=== PATIENT | female | born 1995 | race American Indian/Alaskan Native ===

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

== ENCOUNTER 2021-06-06 14:25 | Emergency (ER) | payer MEDICAID, OTHER ==
[2021-06-06 14:40] VITALS: BP 114/69
[2021-06-06] MEDS ORDERED: SODIUM CHLORIDE 0.9% 1000 ML 1,000 ML IV ONE (15:03)
[2021-06-06] MEDS ORDERED: ONDANSETRON 4 MG/2 ML INJ IV ONE (15:04)
--- NOTE | 2021-06-06 15:11 | Emergency Department Report ---
- General Chief Complaint: Upper Respiratory Infection Stated Complaint: FLU SYM/COUGH/SOB Source: patient Mode of arrival: Ambulatory Limitations: No Limitations - History of Present Illness Initial Comments: 26-year-old female presents to the ED with complaint of body ache, fever ,cough and vomiting x1. patient states that she is 24 weeks and feels weak. 1 par 0 A 1. Patient states that her and her boyfriend went to another hospital and was exposed to the flu. States that she her boyfriend is positive for the flu . Patient states that she has vomited x1 today. She do have Duragesic and Zofran at home. States she is able to tolerate food but feels weak. Patient states that this is day 3 of having influenza for her but she is concerned because her boyfriend is getting better and she is not. Patient denies abdominal pain, vaginal bleeding or chest pain at present. MD Complaint: cough Context: sick contacts Associated Symptoms: vomiting - Related Data Allergies Allergy/AdvReac Type Severity Reaction Status Date / Time No Known Allergies Allergy Unverified 09/28/16 10:02 ED Review of Systems ROS: Stated complaint: FLU SYM/COUGH/SOB Other details as noted in HPI Constitutional: denies: chills, fever Eyes: denies: eye pain, eye discharge, vision change ENT: denies: ear pain, throat pain Respiratory: cough. denies: shortness of breath, wheezing Cardiovascular: denies: chest pain, palpitations Endocrine: no symptoms reported Gastrointestinal: denies: abdominal pain, nausea, diarrhea Genitourinary: denies: urgency, dysuria, discharge Musculoskeletal: denies: back pain, joint swelling, arthralgia Skin: denies: rash, lesions Neurological: denies: headache, weakness, paresthesias Psychiatric: denies: anxiety, depression Hematological/Lymphatic: denies: easy bleeding, easy bruising ED Physical Exam - General Limitations: No Limitations General appearance: alert, in no apparent distress - Head Head exam: Present: atraumatic, normocephalic - Eye Eye exam: Present: normal appearance - ENT ENT exam: Present: mucous membranes moist - Neck Neck exam: Present: normal inspection - Respiratory Respiratory exam: Present: normal lung sounds bilaterally. Absent: respiratory distress - Cardiovascular Cardiovascular Exam: Present: regular rate, normal rhythm. Absent: systolic murmur, diastolic murmur, rubs, gallop - GI/Abdominal GI/Abdominal exam: Present: soft, normal bowel sounds - Extremities Exam Extremities exam: Present: normal inspection - Back Exam Back exam: Present: normal inspection - Neurological Exam Neurological exam: Present: alert, oriented X3 - Psychiatric Psychiatric exam: Present: normal affect, normal mood - Skin Skin exam: Present: warm, dry, intact, normal color. Absent: rash ED Course Vital Signs 06/06/21 14:39 Temperature 98.3 F Pulse Rate 107 H Respiratory 18 Rate Blood Pressure 114/69 O2 Sat by Pulse 97 Oximetry ED Medical Decision Making - Medical Decision Making 26-year-old female presents to the ED with complaint of body ache, fever ,cough and vomiting x1. patient states that she is 24 weeks and feels weak. 1 par 0 A 1. Patient states that her and her boyfriend went to another hospital and was exposed to the flu. States that she her boyfriend is positive for the flu . Patient states that she has vomited x1 today. She do have Duragesic and Zofran at home. States she is able to tolerate food but feels weak. Patient states that this is day 3 of having influenza for her but she is concerned because her boyfriend is getting better and she is not. Patient denies abdominal pain, vaginal bleeding or chest pain at present. Patient given 1 L of normal saline and Zofran. States she feels better after fluids and medication. Patient to follow-up with [facility]. Rechecked the patient is resting quietly quietly and comfortable and feeling b angie. I discussed the results of diagnostic study, my clinical impression and the plan for further treatment with the patient. Patient agrees with plan and discharge at this present time. All question addressed. I have given the patient instruction regarding a diagnosis ,expectation ,follow- up and return precaution. I explained to the patient that emergent condition may arise and to return to the ED for new worsen and any new persisting condition. I have explained the importance of following up with the primary care physician or referral physician listed below has instructed. The patient verbalized understanding of discharge instruction. Critical care attestation.: If time is entered above; I have spent that time in minutes in the direct care of this critically ill patient, excluding procedure time. ED Disposition Clinical Impression: Influenza Disposition: HOME / SELF CARE / HOMELESS Is pt being admited?: No Does the pt Need Aspirin: No Condition: Stable Instructions: Influenza, Adult, [id number] Additional Instructions: Please follow-up with [facility] Drink plenty of fluids Return urn to ED for any worsening symptoms Continue take your Duragesic and Zofran as previous prescribed Referrals: [facility] [Primary Care Provider] - 3-5 Days [facility] [Provider [facility]] - 3-5 Days Forms: Work/School Release Form(ED)
== END 2021-06-06 16:47 | disposition home or self-care (01) ==
LOC: ED 14:25
DX: O26.892 Other specified pregnancy related conditions, second trimester (principal); J11.1 Influenza due to unidentified influenza virus with other respiratory manifestations; Z3A.24 24 weeks gestation of pregnancy
CPT/HCPCS: 96361; 96374; 99282; J7030; Q0162